=== PATIENT | male | born 1975 | race Caucasian/White ===

== ENCOUNTER 2017-01-22 07:44 | Emergency (ER) | payer OTHER ==
[2017-01-22 07:49] VITALS: BP 132/78; PULSE 99; RESP 16; TEMP 97.8; O2SAT 96; BMI 25.0
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
[2017-01-22 09:23] LABS: BASO % 0.4 % (0.0-2.0); EOS # 0.1 K/uL (0.0-0.7); EOS % 1.1 % (0.0-4.0); HEMATOCRIT 46.3 % (35.0-51.0); LYMPH # 1.6 K/uL (1.0-4.3); MEAN CORPUSCULAR HGB CONC 33.7 g/dL (33.0-37.0); MEAN PLATELET VOLUME 7.8 fl (7.2-11.7); MONO # 0.4 K/uL (0.0-0.8); MONO % 5.2 % (0.0-10.0); NEUT # 5.7 K/uL (1.8-7.0); NEUT % 73.3 % (50.0-75.0); RED CELL DISTRIBUTION WIDTH 14.4 % (11.5-14.5); WHITE BLOOD COUNT 7.8 K/uL (4.8-10.8)
[2017-01-22 09:35] LABS: ALCOHOL SERUM < 10 mg/dl (0-10); BLOOD UREA NITROGEN 16 mg/dl (9-20); CALCIUM 9.3 mg/dL (8.4-10.2); CARBON DIOXIDE 25 mmol/L (22-30); CHLORIDE 104 mmol/L (98-107); GFR AFRICAN-AMERICAN > 60; GLUCOSE,RANDOM 118 mg/dL (75-110); MAGNESIUM 2.1 MG/DL (1.6-2.3); POTASSIUM 4.8 MMOL/L (3.6-5.0); SODIUM 139 mmol/l (132-148)
--- NOTE | 2017-01-22 10:10 | CT ---
PROCEDURE: CT HEAD WITHOUT CONTRAST. HISTORY: seizure COMPARISON: None available. TECHNIQUE: Axial computed tomography images were obtained through the head/brain without intravenous contrast. Radiation dose: Total exam DLP = 895.55 mGy-cm. This CT exam was performed using one or more of the following dose reduction techniques: Automated exposure control, adjustment of the mA and/or kV according to patient size, and/or use of iterative reconstruction technique. FINDINGS: HEMORRHAGE: No intracranial hemorrhage. BRAIN: Low-attenuation area in the left frontal region measuring 2.8 cm in diameter. Mean Hounsfield unit values 22. The findings are immediately subjacent to the craniotomy site and likely related to prior, remote trauma there is no associated edema or mass effect. VENTRICLES: Unremarkable. No hydrocephalus. CALVARIUM: Post craniotomy changes left frontal parietal region. Findings are consistent with stated history of remote trauma. PARANASAL SINUSES: Negative study for acute paranasal sinusitis. 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 MASTOID AIR CELLS: Unremarkable as visualized. No inflammatory changes. OTHER FINDINGS: None. 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 In the absence of prior studies, and given the history of seizure, follow-up recommended. In these circumstances with this clinical history, MRI is the recommended procedure of choice.
--- NOTE | 2017-01-25 10:07 | CARD ---
APPROVED REPORT EKG Measurement Heart [id number] <Conclusion> Normal sinus rhythm Possible Left atrial enlargement Borderline ECG
== END 2017-01-22 13:10 | disposition home or self-care (01) ==
LOC: H.ER 07:44
DX: G40.909 Epilepsy, unspecified, not intractable, without status epilepticus (principal); G93.89 Other specified disorders of brain; Y93.55 Activity, bike riding; R55 Syncope and collapse